=== PATIENT | female | born 1985 | race Caucasian/White ===

== ENCOUNTER 2019-08-18 05:05 | Emergency (ER) | payer OTHER ==
[2019-08-18] MEDS ORDERED: METOCLOPRAMIDE HCL INJ/PF 10 MG/2 ML SDV IV ONE (05:27)
[2019-08-18] MEDS ORDERED: NORMAL SALINE 1000 ML 1,000 ML IV ONE (05:28)
[2019-08-18] MEDS ORDERED: ACETAMINOPHEN 325 MG TABLET PO ONE (05:29)
[2019-08-18] MEDS ORDERED: CIPROFLOXACIN HCL 500 MG TABLET PO ONE (05:31)
[2019-08-18 05:46] LABS: APPEARANCE,URINE SLIGHTLY-CLOUDY; BILIRUBIN,URINE NEGATIVE (NEGATIVE); COLOR,URINE YELLOW; GLUCOSE, URINE NEGATIVE (NEGATIVE); KETONES,URINE NEGATIVE (NEGATIVE); LEUKOCYTE ESTERASE,URINE SMALL (NEGATIVE); NITRITE,URINE POSITIVE (NEGATIVE); PROTEIN,URINE 30 mg/dL (NEGATIVE); URINE SPECIFIC GRAVITY 1.018; UROBILINOGEN,URINE NEGATIVE mg/dL (<2.0)
--- NOTE | 2019-08-18 05:47 | ER Document Report ---
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 Experiencing headache similar to migraine she has had in the past. Patient denies vomiting, bowel symptoms, immune compromise, recent antibiotics, vaginal symptoms - Related Data Allergies/Adverse Reactions: sulfamethoxazole [From Bactrim] Allergy (Verified 08/18/19 05:18) trimethoprim [From Bactrim] Allergy (Verified 08/18/19 05:18) Home Medications: ATTERAL Past Medical History - Social History Frequency of alcohol use: None Drug Abuse: None Physical Exam - Vital signs Vitals: Temp 99.3 F 08/18/19 05:18 - Notes Notes: PHYSICAL EXAMINATION: GENERAL: Well-appearing, well-nourished and in no acute distress. Soft, nontender abdomen. +b/l CVAT. Awake, alert, conversing appropriately, moves all extremities spontaneously Course - Re-evaluation Re-evalutation: 08/18/19 05:45 I have greeted and performed a rapid initial assessment of this patient. A comprehensive ED assessment and evaluation of the patient, analysis of test results and completion of medical decision making process will be conducted by an additional ED providers. - Vital Signs Vital signs: Temp Pulse Resp BP Pulse Ox 99.3 F 92 18 107/68 97 08/18/19 05:22 08/18/19 05:22 08/18/19 05:22 08/18/19 05:22 08/18/19 05:22
[2019-08-18 06:05] LABS: ABSOLUTE BASOPHILS # (AUTO) 0.1 10^3/uL (0.0-0.2); ABSOLUTE LYMPHOCYTES (AUTO) 0.8 10^3/uL (0.5-4.7); ABSOLUTE MONOCYTES (AUTO) 1.3 10^3/uL (0.1-1.4); ABSOLUTE NEUT (AUTO) 10.1 10^3/uL (1.7-8.2); BASOPHILS % (AUTO) 0.4 % (0-2); EOSINOPHILS % (AUTO) 0.2 % (0-6); HEMATOCRIT 38.7 % (36.0-47.0); HEMOGLOBIN 13.5 g/dL (12.0-15.5); LYMPHOCYTES % (AUTO) 6.2 % (13-45); MEAN CORPUSCULAR HEMOGLOBIN 32.6 pg (27.0-33.4); MEAN CORPUSCULAR HGB CONC 34.8 g/dL (32.0-36.0); MEAN CORPUSCULAR VOLUME 94 fl (80-97); MONOCYTES % (AUTO) 10.5 % (3-13); PLATELET COUNT 188 10^3/uL (150-450); RED BLOOD COUNT 4.13 10^6/uL (3.72-5.28); RED CELL DISTRIBUTION WIDTH 13.4 % (11.5-14.0); SEGMENTED NEUTROPHILS % (AUTO) 82.7 % (42-78); TOTAL CELLS COUNTED % (AUTO) 100 %; WHITE BLOOD COUNT 12.3 10^3/uL (4.0-10.5)
--- NOTE | 2019-08-18 06:10 | ER Document Report ---
ED General - General Chief Complaint: Headache Stated Complaint: LOWER BACK PAIN,TROUBLE URINATION,FEVER,CHILLS Time Seen by Provider: 08/18/19 06:01 Notes: Patient is a 33 year old female that comes to the Emergency Department for chief complaint of gradually worsening bilateral flank rodolfo nfor the past several days, almost a week. She reports dysuria, frequency, nausea, and chills. No fever recorded. She also states she has developed a migraine tonight with a throbbing pain in the forehead area with light sensitivity. She denies vomiting, visual changes, focal numbness or weakness, neck stiffness. She has had headaches similar this one many times in the past. She denies history of kidney stones. She denies vaginal bleeding or discharge. She reports a past medical history of ADHD and migraines, denies medical history otherwise. - Related Data Allergies/Adverse Reactions: sulfamethoxazole [From Bactrim] Allergy (Verified 08/18/19 05:18) trimethoprim [From Bactrim] Allergy (Verified 08/18/19 05:18) Home Medications: ATTERAL Past Medical History - General Information source: Patient - Social History Smoking Status: Current Every Day Smoker Frequency of alcohol use: None Drug Abuse: None Lives with: Family Family History: Reviewed & Not Pertinent Patient has homicidal ideation: No Neurological Medical History: Reports: Hx Migraine Psychiatric Medical History: Reports: Hx Attention Deficit Hyperactivity Disorder Surgical Hx: Negative - Immunizations Immunizations up to date: Yes Hx Diphtheria, Pertussis, Tetanus Vaccination: Yes Review of Systems - Review of Systems Constitutional: See HPI EENT: No symptoms reported Cardiovascular: No symptoms reported Respiratory: No symptoms reported Gastrointestinal: No symptoms reported Genitourinary: See HPI Female Genitourinary: No symptoms reported Musculoskeletal: No symptoms reported Skin: No symptoms reported Hematologic/Lymphatic: No symptoms reported Neurological/Psychological: See HPI Physical Exam - Vital signs Vitals: Temp 99.3 F 08/18/19 05:18 - Notes Notes: GENERAL: Alert, interacts well. No acute distress. HEAD: Normocephalic, atraumatic. EYES: Pupils equal, round, and reactive to light. Extraocular movements intact. ENT: Oral mucosa moist, tongue midline. Oropharynx unremarkable. Airway patent. NECK: Full range of motion. Supple. Trachea midline. No lymphadenopathy. No nu chal rigidity. LUNGS: Clear to auscultation bilaterally, no wheezes, rales, or rhonchi. No respiratory distress. Non-tender chest wall. HEART: Regular rate and rhythm. No murmur ABDOMEN: Soft, non-tender. Non-distended. No guarding or rigidity. Bowel sounds present in all 4 quadrants. GENITOURINARY: Deferred EXTREMITIES: Moves all 4 extremities spontaneously. No edema, normal radial and dorsalis pedis pulses bilaterally. No cyanosis. BACK: no cervical, thoracic, lumbar midline tenderness. No saddle anesthesia, normal distal neurovascular exam. Moves all extremities in full range of motion. NEUROLOGICAL: Alert and oriented x3. Normal speech. Cranial nerves II through XII grossly intact. Strength 5/5 in all extremities. PSYCH: Normal affect, normal mood. SKIN: Warm, dry, normal turgor. No rashes or lesions noted. Course - Re-evaluation Re-evalutation: Patient is alert and well-appearing on my exam. Her abdomen is soft and benign. Vital signs are unremarkable. CBC shows mild leukocytosis with elevation of neutrophils but no bandemia. Chemistry is unremarkable. test is negative. Urine does indicate infection with positive nitrates, bacteria, white blood cells. Patient with bilateral flank pain, gradually developing symptoms with dysuria, nausea but no vomiting. Very low suspicion of infected ur eterolithiasis based on this presentation. Patient already received Cipro from triage, she is allergic to Bactrim, she will be continued on Cipro for suspected developing pyelonephritis. On reevaluation after IV Reglan headache is completely resolved. Patient states she feels great, she has no current complaints except intermittent back cramps and pain. I discussed treatment, expectations, follow-up, and return precautions in detail. Patient states understanding and agreement. Stable and well-appearing at time of discharge. - Vital Signs Vital signs: Temp Pulse Resp BP Pulse Ox 99.3 F 92 18 107/68 97 08/18/19 05:22 08/18/19 05:22 08/18/19 05:22 08/18/19 05:22 08/18/19 05:22 - Laboratory Result Diagrams: 08/18/19 05:45 08/18/19 05:45 Laboratory results interpreted by me: 08/18/19 08/18/19 08/18/19 05:30 05:45 05:45 WBC 12.3 H Lymph % (Auto) 6.2 L Absolute Neuts (auto) 10.1 H Seg Neutrophils % 82.7 H Sodium 133.8 L Urine Protein 30 H Urine Blood MODERATE H Urine Nitrite POSITIVE H Ur Leukocyte Esterase SMALL H Discharge - Discharge Clinical Impression: Dysuria, Flank pain Urinary tract infection Qualifiers: Urinary tract infection type: site unspecified Hematuria presence: without hematuria Qualified Code(s): N39.0 - Urinary tract infection, site not specified Headache Qualifiers: Headache type: unspecified Headache chronicity pattern: acute headache Intractability: not intractable Qualified Code(s): R51 - Headache Condition: Stable Disposition: HOME, SELF-CARE Additional Instructions: Your work-up indicates a urinary tract infection, probably a developing pyelonephritis (kidney infection). Take the antibiotics as prescribed to completion, take Phenergan as needed for nausea, drink plenty of fluids and rest. Take the provided pain medication if needed, otherwise take [id number] Tylenol and ibuprofen. Your evaluation, symptoms, and resolution with treatment are also very suggestive of a migraine. You can take the prescribed medication if needed for headaches in the future. Follow-up with primary care for additional evaluation and management of migraines. Return if you worsen including returned or severe headache, vomiting, fever, severe worsening pain in your abdomen or back, or any other concerning or worsening symptoms. Prescriptions: Ciprofloxacin HCl [Cipro 500 mg Tablet] 500 mg PO BID 7 Days #14 tablet Butalb/Acetaminophen/Caffeine [Fioricet (50-325-40 mg) Tablet] 1 tab PO Q4H #20 tab Promethazine HCl [Phenergan 25 mg Tablet] 25 mg PO Q6H PRN #15 tablet PRN Reason: Forms: Return to Work
[2019-08-18 06:19] LABS: ANION GAP 7 (5-19); BLOOD UREA NITROGEN 12 mg/dL (7-20); CALCIUM 8.8 mg/dL (8.4-10.2); CARBON DIOXIDE 26 mmol/L (22-30); CHLORIDE 101 mmol/L (98-107); GLUCOSE 106 mg/dL (75-110); POTASSIUM 3.8 mmol/L (3.6-5.0)
[2019-08-18] MEDS ORDERED: HYDROCODONE/ACETAMINOPHEN 5-325 MG (6 TAB/ER DISP) PO PRN (06:53)
[2019-08-18 07:07] VITALS: BP 109/53
== END 2019-08-18 07:05 | disposition home or self-care (01) ==
LOC: ER 05:05
DX: R51 Headache (principal); H53.149 Visual discomfort, unspecified; N39.0 Urinary tract infection, site not specified; R10.9 Unspecified abdominal pain; R30.0 Dysuria; R35.0 Frequency of micturition; R11.0 Nausea; R68.83 Chills (without fever); F90.9 Attention-deficit hyperactivity disorder, unspecified type; Z79.899 Other long term (current) drug therapy; F17.200 Nicotine dependence, unspecified, uncomplicated; Z86.69 Personal history of other diseases of the nervous system and sense organs; Z88.1 Allergy status to other antibiotic agents
CPT/HCPCS: 99283; 96361; 96374; 36415; 87086; 85025; 81025; 87088; 80048; 81001; J2765; J7030; 87186